=== PATIENT | female | born 1945 | race Caucasian/White ===

== ENCOUNTER → 2016-07-10 | Outpatient (CLI) | payer MEDICARE, OTHER | LOC: ECHO 11:30 | DX: R01.0 Benign and innocent cardiac murmurs (principal) | CPT/HCPCS: ECHO; 93306 ==

== ENCOUNTER → 2016-08-06 | Outpatient (CLI) | payer MEDICARE, OTHER | LOC: MAMO 15:21 | DX: Z12.31 Encounter for screening mammogram for malignant neoplasm of breast (principal); Z80.3 Family history of malignant neoplasm of breast; Z98.890 Other specified postprocedural states; N63 Unspecified lump in breast | CPT/HCPCS: G0202 ==

== ENCOUNTER → 2021-02-28 | Outpatient (CLI) | payer MEDICARE, OTHER ==
[~2021-02-28] MED LIST: ANTIVERT 25MG T25 MG PO; NORVASC 5 MG TAB5 MG PO
== END ==
LOC: HEART 5 13:30
DX: I48.0 Paroxysmal atrial fibrillation (principal); R06.02 Shortness of breath; I08.3 Combined rheumatic disorders of mitral, aortic and tricuspid valves
CPT/HCPCS: 93306

== ENCOUNTER → 2021-06-26 | Outpatient (CLI) | payer MEDICARE, OTHER ==
[2021-06-26 11:34] LABS: HEMOGLOBIN 15.1 gm/dl (12.3-15.3); RED BLOOD COUNT 5.43 M/UL (4.00-5.10)
[2021-06-28 14:12] LABS: CHOLESTEROL, TOTAL 186 mg/dL (100-199); HDL SIZE 8.8 nm (>=9.2); HDL-C 46 mg/dL (>39); HDL-P (TOTAL) 33.4 umol/L (>=30.5); LARGE HDL-P 3.5 umol/L (>=4.8); LARGE VLDL-P 4.4 nmol/L (<=2.7); LDL SIZE 20.2 nm (>20.5); LDL SIZE 20.2 nm (>=20.8); LDL-C 111 mg/dL (0-99); LDL-P 1327 nmol/L (<1000); LP-IR SCORE 63 (<=45); SMALL LDL-P 793 nmol/L (<=527); TRIGLYCERIDES 164 mg/dL (0-149); VLDL SIZE 47.2 nm (<=46.6)
== END ==
LOC: LAB 11:13
PROVIDERS: Emergency Medicine
DX: E11.65 Type 2 diabetes mellitus with hyperglycemia (principal); E11.22 Type 2 diabetes mellitus with diabetic chronic kidney disease; I12.9 Hypertensive chronic kidney disease with stage 1 through stage 4 chronic kidney disease, or unspecified chronic kidney disease; N18.30 Chronic kidney disease, stage 3 unspecified; E78.2 Mixed hyperlipidemia
CPT/HCPCS: 36415; 80053; 80061; 83036; 83704; 85025

== ENCOUNTER → 2021-07-31 | Outpatient (CLI) | payer MEDICARE, OTHER ==
[2021-07-31 11:57] LABS: HEMOGLOBIN 14.7 gm/dl (12.3-15.3); RED BLOOD COUNT 5.14 M/UL (4.00-5.10); WHITE BLOOD COUNT 9.5 K/UL (4.5-11.0)
== END ==
LOC: LAB 11:16
PROVIDERS: Optometrist
DX: H35.61 Retinal hemorrhage, right eye (principal)
CPT/HCPCS: 36415; 85025; 85652; 86140

== ENCOUNTER → 2021-08-06 | Outpatient (CLI) | payer MEDICARE, OTHER | LOC: CT 09:59 | DX: R10.30 Lower abdominal pain, unspecified (principal) ==

== ENCOUNTER → 2021-11-02 | Outpatient (CLI) | payer MEDICARE, OTHER | LOC: RT 13:44 | DX: I48.91 Unspecified atrial fibrillation (principal); E11.9 Type 2 diabetes mellitus without complications | CPT/HCPCS: 36415; 93005 ==